=== PATIENT | female | born 1965 ===

== ENCOUNTER 2022-10-20 05:00 | Day surgery (SDC) | payer OTHER ==
[~2022-10-20 05:00] MED LIST: FLOVENT HFA12 GM IH; LIPITOR20 MG PO; LOVAZA1 GM PO; METFORMIN HCL500 M3 PO
== END 2022-10-20 12:25 | disposition home or self-care (01) ==
LOC: CIR.AMB 05:00
PROVIDERS: ATTEND Surgery Surgery of the Hand
DX: D21.12 Benign neoplasm of connective and other soft tissue of left upper limb, including shoulder (principal); Z88.0 Allergy status to penicillin; Z91.018 Allergy to other foods; Z20.822 Contact with and (suspected) exposure to COVID-19